=== PATIENT | female | born 1990 | race Caucasian/White ===

== ENCOUNTER 2016-12-07 11:55 | Emergency (ER) | payer BC ==
[~2016-12-07] VITALS: Ht 152.4 cm; Wt 64.1 kg
[2016-12-07 12:01] VITALS: TEMP 36.8; Ht 152.4 cm; Wt 64.1 kg
[2016-12-07] MEDS ORDERED: GABA-113 PO (12:07)
[2016-12-07] MEDS ORDERED: RIZA5TAB10 PO (12:07)
[2016-12-07] MEDS ORDERED: NAPROXEN 250 MG TAB PO STA (12:55)
[2016-12-07 13:14] VITALS: BP 117/66; PULSE 61; O2SAT 98
--- NOTE | 2016-12-09 09:21 | EMERGENCY ROOM VISIT NOTE ---
ED Visit Note First contact with patient: 12:20 Chief Complaint: Severe right leg pain. History of Present Illness: Ms. Kelley is a 26-year-old white female who ambulates into the ED complaining of right leg pain. Patient reports shortly after waking this morning, about 3 hours ago she started experiencing right leg pain starting in her buttocks and radiating down to her knee. She describes the pain as a sharp sensation. She rates her discomfort 7/10. Her pain is aggravated with palpation of the buttocks, ambulation and weightbearing. She has not identified any alleviating factors related to the pain. She has taken Neurontin 300 mg for her discomfort without relief; prescribed for headaches. She denies any recent repetitive or direct traumatic events. She denies fevers, chills, sweats, skin eruptions, skin color changes, lumbar back pain, abdominal pain, nausea, vomiting, flank pain, urinary symptoms, hematuria, vaginal bleeding, vaginal discharge, genital paresthesias, bowel and bladder dysfunction, lower extremity weakness/numbness/tingling. Review of Systems: As noted above in history of present illness. 8 body systems were reviewed and found to be negative as noted above. Past Medical History:Ciari malformation, headaches, status post total plasty and left thumb surgery. Current Medications: Maxalt, Neurontin. Allergies to Medications: Acetaminophen, hydrocodone and ibuprofen. Social History: Patient is currently employed; she feels safe in her home environment; she denies tobacco use and admits to alcohol use. Physical Examination: Vital Signs: Date Time Temp Pulse Resp B/P Pulse Ox O2 Delivery O2 Flow Rate FiO2 12/07/16 13:14 61 16 117/66 98 12/07/16 12:01 36.8 70 18 136/72 100 Room Air GENERAL: 26-year-old female in mild to moderate distress due to pain, nontoxic- appearing, afebrile and hemodynamically stable. NEUROLOGICAL: Awake, alert and oriented to person, place and time. Answering questions appropriately and following commands. Normal gait. Good hand eye coordination. No focal motor sensory deficits. SKIN: Warm, dry and pink. No soft tissue eruptions or trauma noted. BACK: No tenderness over the cervical, thoracic, lumbar, sacral and coccygeal bony spines. No tenderness in the lumbar paraspinous musculature. No palpable spasm. No CVA tenderness. THORAX: Lungs sounds are clear to auscultation and equal bilaterally with symmetrical chest wall. ABDOMEN: Flat, soft and nontender. Positive bowel sounds in all quadrants. No guarding, rigidity or organomegaly. LOWER EXTREMITIES: No gross bony deformities. No shortening or rotation. No tenderness over the bony structures of the hips, thighs, knees, lower legs or ankle. Patient does have moderate tenderness in the superior portion of the buttocks and extending down into the hamstring muscles. I do not appreciate any muscle deficits or spasm. Patient has full range of motion and muscle strength in flexion, extension, abduction and abduction of the hips, flexion and extension of the knees and plantar flexion and dorsiflexion of the ankles. 2+ patellar and Achilles deep tendon reflexes intact and equal bilaterally. She is able to distinguish light sensations through all dermatomes of the lower legs and feet. No calf tenderness or cords. ED Course: Patient is assessed as noted above. Patient was given 250 mg of naproxen by mouth for pain. Patient was given nonweightbearing crutches and instructed on their use. Patient was educated about tonight's findings and instructed on her treatment plan; she verbalized agreement and understanding of this plan. Clinical Impression: Sciatica. Decision-Making: Initially my differential diagnosis I considered lumbar herniated disc, fractures of the sacrum and coccyx, degenerative disc disease, sciatica, muscle strain and other causes. Disposition: Patient discharged home in stable condition; prior to departure she was reassessed and subjectively reported she was feeling the same. Plan: Comfort measures were discussed with the patient including use of Aleve as needed for pain, rest, ice, crutch use. Patient was encouraged to follow-up with her P PCP for recheck if no better in 3 -4 days and possible referral to physical therapy and/or specialist. Patient was encouraged return the ED for worsening/uncontrolled pain, fevers, leg weakness/numbness/tingling, genital/rectal paresthesias, bowel and bladder dysfunction or any new/concerning symptoms.
== END 2016-12-07 13:15 | disposition home or self-care (01) ==
LOC: C.EDB 11:58 → C.EDD 13:15
DX: M54.31 Sciatica, right side (principal)

== ENCOUNTER 2017-09-04 13:53 | Emergency (ER) | payer BC ==
[~2017-09-04] VITALS: Ht 152.4 cm; Wt 63.4 kg
[~2017-09-04 13:53] MED LIST: GABA-113 PO; RIZA5TAB10 PO
[2017-09-04 13:56] VITALS: BP 129/85; PULSE 73; TEMP 37.1; O2SAT 97; Ht 152.4 cm; Wt 63.4 kg
--- NOTE | 2017-09-04 14:27 | EMERGENCY ROOM VISIT NOTE ---
History First contact with patient: 14:10 Chief Complaint: FOREIGNBODY ANY BODY PART Stated Complaint: GLASS IN LEFT THUMB History of Present Illness The patient is a 26 year old female who presents to the Emergency Room with complaints of a glass foreign body in the tip of her left thumb that is now starting to become irritated. 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 She was attempting to push a hematocrit tube into tamika when the tube broke and stabbed her finger. Patient had no problems with the wound, and elected to wait until the glass got pushed out of the tissue. It never did so, and the patient had no problems until she noticed discomfort today while riding with a pen. She reports mild discoloration at the site. She rates her discomfort a 2 out of 10. The patient is left-hand dominant. Tetanus immunization is up-to-date in 2011. Review of Systems 6 system review was performed and was negative except for pertinent positives and negatives as indicated in history of present illness Past Medical/Surgical History Medical Problems: (1) Sciatica, Right Side Surgical Problems: (1) History of hand surgery (2) History of tympanoplasty Family History FH: cancer Social History Smoking Status: Never Smoker Alcohol Use: occasionally Marital Status: single, in relationship Housing Status: lives with significant other Occupation Status: employed Current/Historical Medications Scheduled Gabapentin (Neurontin), 300 MG PO HS Scheduled PRN Rizatriptan Benzoate (Maxalt), 5 MG PO DIRECTED PRN for Headache Physical Exam Vital Signs Date Time Temp Pulse Resp B/P (MAP) Pulse Ox O2 Delivery O2 Flow Rate FiO2 09/04/17 13:56 37.1 73 18 129/85 97 Room Air Physical Exam CONSTITUTIONAL: Healthy and well nourished. Alert and oriented X 3 with positive affect. HEENT: Normocephalic, atraumatic. Pupils equal, round and reactive. MUSCULOSKELETAL: Examination of the left thumb does not show any erythema, ecchymosis or edema when compared to the right thumb. Nail plate is normal. I am unable to palpate the foreign body, but the patient does report urinary patient while doing so. Capillary refill is less than 2 seconds. INTEGUMENTARY: No rash or other significant dermatologic conditions noted. NEUROLOGIC: Left thumb tip is sensory intact. Medical Decision & Procedures ED Course Patient history and physical exam were performed. Nurse's notes were reviewed. Vital signs were reviewed and were normal. The patient reports that the hematocrit tube was cleared glass. For this reason, I explained that x-rays would not visualize the foreign body very well. I also explained that the patient likely has scar tissue around the glass since it has been in the finger for approximately one year. She was encouraged to contact Dr. Roth, [facility] hand surgeon, for further reevaluation and management. She was encouraged to avoid any undue pressure or irritation of the area. Watch for any signs of infection. Ibuprofen or Tylenol as needed for pain. The patient voiced understanding of all discharge instructions, was happy with plan of care, and denied any significant discomfort at the conclusion of my exam. Medical Decision Medication Reconcilliation Current Medication List: was personally reviewed by me Blood Pressure Screening Patient's blood pressure: Normal blood pressure Impression Primary Impression: Foreign body of left thumb Departure Information Dispostion Home / Self-Care Referrals Tay Roth MD Forms HOME CARE DOCUMENTATION FORM, IMPORTANT VISIT INFORMATION Patient Instructions [facility] Additional Instructions Avoid any undue pressure over the area of the foreign body to avoid further irritation. Ibuprofen as needed for pain. Follow-up with [facility] (Dr. Roth) for further surgical management. Problem Qualifiers Primary Impression: Foreign body of left thumb Encounter type: initial encounter Qualified Codes: S60.352A - Superficial foreign body of left thumb, initial encounter
== END 2017-09-04 14:45 | disposition home or self-care (01) ==
LOC: C.EDB 13:55 → C.EDD 14:45
DX: S60.352A Superficial foreign body of left thumb, initial encounter (principal); W25.XXXA Contact with sharp glass, initial encounter; Y92.89 Other specified places as the place of occurrence of the external cause; Y99.0 Civilian activity done for income or pay

== ENCOUNTER → 2017-12-17 | Outpatient (CLI) | payer BC | END | disposition home or self-care (01) | LOC: C.PAPS 13:30 | PROVIDERS: ATTEND Physician Assistant | DX: Z01.419 Encounter for gynecological examination (general) (routine) without abnormal findings (principal) ==

== ENCOUNTER 2018-03-17 11:30 | Emergency (ER) | payer BC ==
[~2018-03-17] VITALS: Ht 152.4 cm; Wt 65.7 kg
[2018-03-17 11:34] VITALS: TEMP 36.9; Ht 152.4 cm; Wt 65.7 kg
[2018-03-17] MEDS ORDERED: BCPILLS PO (11:38)
--- NOTE | 2018-03-17 12:31 | EMERGENCY ROOM VISIT NOTE ---
ED Visit Note First contact with patient: 11:43 CHIEF COMPLAINT: Right index finger laceration HISTORY OF PRESENT ILLNESS: This 27-year-old female patient presents to the emergency department approximately half an hour after cutting the right index finger with an X-Acto knife. The patient states she was cutting wallpaper, when the knife slipped, slicing the lateral aspect of the index finger superficially. The bleeding stopped shortly after the injury and there is no weakness or numbness of the area. Tetanus shot is up-to-date. Full range of motion of the finger. The patient denies significant pain, and rates her pain 2 /10. REVIEW OF SYSTEMS: A 6 system review of systems was completed with positives and pertinent negatives listed in the HPI. ALLERGIES: Acetaminophen, hydrocodone, ibuprofen MEDICATIONS: OCPs PMH: None SOCIAL HISTORY: Patient lives locally with family. She denies drug, alcohol, tobacco use. PHYSICAL EXAM: Vital Signs: Reviewed Nurse's notes, vital signs stable. GENERAL : This is a 27-year-old white female, in no acute distress, well-developed, well -nourished. SKIN: There is a 1 cm long U-shaped laceration on the lateral aspect of the distal right index finger. It is superficial, partial avulsion, but the edges lay well without traction. There is no foreign material in the wound and it looks clean. There is no active bleeding. No deep structures such as tendons or nerves are seen in the base of the wound. Extension and flexion of the finger is full and strong. Sensation to pain and light touch is intact. EMERGENCY DEPARTMENT COURSE: I examined the patient. I did recommend sutures, however the patient requests Dermabond. I do feel that this is reasonable, however I discussed with the patient the limitations of Dermabond and that it is not the best option for closing the finger wounds. The patient understands these limitations, and I recommended a bandage over the wound if the Dermabond falls off. Verbal consent was obtained to perform the procedure. The right index finger was cleaned with betadine and sterile saline and there was no bleeding. The edges of the laceration were approximated and secured with 3 layers of Dermabond glue with good wound approximation. The patient tolerated the procedure well. Discharge instructions reviewed. The patient was discharged home in stable condition. Differential diagnosis includes laceration, contusion, fracture, sprain/strain, tendon or ligament injury, neurovascular compromise, foreign body, assault, and others I attest that I have personally reviewed the patient's current medication list. Patient was found to have normal blood pressure on screening and does not require follow-up. Differential diagnosis includes laceration, contusion, fracture, sprain/strain, tendon or ligament injury, neurovascular compromise, foreign body, assault, and others DIAGNOSIS: Superficial right index finger laceration The chart was completed utilizing [employer] Speech voice recognition software. Grammatical errors, random word insertions, pronoun errors, and incomplete sentences are an occasional consequence of this system due to software limitations, ambient noise, and hardware issues. Any formal questions or concerns about the content, text, or information contained within the body of this dictation should be directly addressed to the provider for clarification. Current/Historical Medications Scheduled Control Pills ( Control Pills), 1 TAB PO DAILY Allergies Coded Allergies: Acetaminophen (Unverified Allergy, Severe, VOMTING, 09/04/17) Hydrocodone (Unverified Allergy, Severe, VOMTING, 09/04/17) Ibuprofen (Unverified Adverse Reaction, Severe, GI BLEEDS, 09/04/17) Vital Signs Date Time Temp Pulse Resp B/P (MAP) Pulse Ox O2 Delivery O2 Flow Rate FiO2 03/17/18 12:49 92 20 123/75 97 03/17/18 11:34 36.9 70 20 138/83 98 Room Air Departure Information Impression Primary Impression: Laceration of right index finger Dispostion Home / Self-Care Condition GOOD Referrals No Doctor, Assigned (PCP) Patient Instructions ED Laceration Ext Skin Glue, My [facility] Additional Instructions You were seen and evaluated in the emergency department today for a superficial finger laceration. This was repaired with Dermabond. As discussed, avoid getting the Dermabond wet. It may fell off sooner than normal due to the laceration being over your finger. If this occurs, follow wound care instructions. Read DermaBond handout. Proper wound care is essential for adequate wound healing and infection prevention. You can shower and clean the wound with soap and water. Do not scour over the wound, pat dry with a towel. Do not submerse the wound (i.e. bathe or dish wash) until the wound has fully healed. You can use an antibiotic ointment with a dressing over the wound for the next 3-4 days. After this time you may leave the wound dry and open to the air. Ice and elevate for swelling and pain. Ibuprofen(Motrin, Advil) may be used for fever or pain. Use 600mg every six hours as needed. Take with food. Avoid using more than 2400mg in a 24 hour period. Do not use 2400mg per day for more than three consecutive days without physician direction. Prolonged inappropriate use can lead to stomach upset or ulcers. (AND/OR) Acetaminophen(Tylenol) may be used for fever or pain. Use 1000mg every six hours as needed. Avoid using more than 3000mg in a 24 hour period. Return for any signs of infection (increasing redness, swelling, drainage, fever ). Keep covered when in sun until fully healed then SPF 50 or higher for one year. Vitamin E oil if desired two weeks after fully healed for reduction of scar. Problem Qualifiers Primary Impression: Laceration of right index finger Encounter type: initial encounter Damage to nail status: without damage Foreign body presence: without foreign body Qualified Codes: S61.210A - Laceration without foreign body of right index finger without damage to nail, initial encounter
[2018-03-17 12:49] VITALS: BP 123/75; PULSE 92; O2SAT 97
== END 2018-03-17 12:51 | disposition home or self-care (01) ==
LOC: C.EDB 11:31 → C.EDD 12:51
DX: S61.210A Laceration without foreign body of right index finger without damage to nail, initial encounter (principal); W26.0XXA Contact with knife, initial encounter